=== PATIENT | female | born 1945 | race Caucasian/White ===

== ENCOUNTER 2017-04-28 05:27 | Inpatient (IN) | payer MEDICARE ==
[2017-04-28] VITALS (8 sets, daily range): BP systolic 124–179; BP diastolic 48–81
[~2017-04-28] VITALS: Ht 167.6 cm; Wt 131.8 kg
--- NOTE | ~2017-04-28 | O ---
[place], [place] OPERATIVE NOTE [id number] UN[facility] #: [id number] ROOM: 404 DOCTOR: DESIREE MENDOZA MDCOTTON PLANTDEVORA BIRTHDATE: [birth year] DOS: HISTORY: The patient is a 71-year-old patient was presented to Emergency Room with chief complaint of subxiphoid pain, difficulty with swallowing, suspected to be esophageal foreign body. I was called early in the morning from the Emergency Room with this concern and the patient was admitted for evaluation endoscopically. PAST MEDICAL HISTORY: Previous esophageal foreign body, asthma, morbid obesity, GERD, hypertension. PAST SURGICAL HISTORY: Bilateral total knee prosthesis, hysterectomy, tubal ligation, tonsillectomy. SOCIAL HISTORY: Nonsmoker, nonalcohol consumer. FAMILY HISTORY: Noncontributory. ALLERGIES: MULTIPLE MEDICATIONS INCLUDING IVP DYE, SULFA, ALENDRONATE, SODIUM, NISOLDIPINE. FOOD ALLERGIES TO LEMON, FISH, DAIRY PRODUCTS. MEDICATIONS: List has been reviewed. She has been on Zegerid apparently at home, . PROCEDURE: Today's procedure part of investigation is panendoscopy plus biopsy. PREMEDICATION: Versed and Diprivan. SCOPE: Olympus forward-viewing gastroscope Q10 video. REPORT: After putting the patient in the left lateral position and after application of lubricant to the scope, the scope was introduced. Thereafter, under direct visualization, I advanced through the length of esophagus without difficulty. Esophagus in general is tortuous and at the distal esophagus, inflammatory response was noticed, wondering if this was secondary to pressure that was introduced with foreign body that used to be here; therefore, distal esophagitis noticed lower esophageal sphincter, biopsied with concerns for such. A small hiatal hernia was noticed. Gastric pouch was entered. Multiple antral erosions were seen, photographed, biopsied. Duodenal bulb, second and third part within normal limit. The patient extubated, tolerated procedure well. IMPRESSION: Mildly tortuous esophagus, distal esophagitis, status post biopsy, hiatal hernia, gastritis, gastric erosions. PLAN AND DISCUSSION: We are going to switch her from Zegerid to omeprazole 40 mg daily. Soft diet was advised. After a trial of therapy, the patient is going to be returned for future esophageal dilation understanding after healing of the distal esophagitis and clinical reassessment. The patient can be discharged today. [place], [place] OPERATIVE NOTE NAME: LIZET ABARCA UNIT #: [id number] ROOM: 404 DOCTOR: REJI PALENCIA,JC BIRTHDATE: [birth year] JC MENDOZA MD CM:OPRECORD:OPERATIVE NOTE [id number] JC MEDNOZA MD 04/28/17 1332 interface
[~2017-04-28 05:27] MED LIST: ADVAIR 250/501 EA INH; ALBUTEROL2.5 MG/0.5 INH; B12,B-12,B 12500 MC1 PO; BREO ELLIPTA 11 EACH IH; DEMADEX10 M1 PO; DICLOFENAC SOD75 MG PO; DIOVAN HCT 25 M1 TA5 PO; DUONEB 3 MG/3 ML3 M1 INH; NEXIUM 24HR20 M1 PO; NEXIUM20 M1 PO; OSTERA TABLET1 EACH PO; PREDNISONE10 MG PO; TYLENOL EXTRA500 MG PO; VIBRAMYCIN100 MG PO; VITAMIN D5000 I3 PO; XANAX0.5 MG PO
[2017-04-28 06:18] LABS: BASO % 0.2 % (0.0-1.0); EOS # 0.4 10*3/uL (0.0-0.4); EOS % 4.2 % (1.0-4.0); HEMATOCRIT 33.7 % (37.0-47.0); HEMOGLOBIN 10.1 g/dl (12.0-16.0); LYMPH # 1.6 10*3/uL (1.3-4.4); LYMPH % 15.8 % (27.0-41.0); MEAN CELL VOLUME 81.4 fl (81.0-99.0); MEAN CORPUSCULAR HGB 24.4 pg (27.0-31.0); MEAN PLATELET VOLUME 9.2 fl (9.6-12.3); MONO # 0.5 10*3/uL (0.1-1.0); MONO % 5.4 % (3.0-9.0); NEUT # 7.4 10*3/uL (2.3-7.9); PLATELET COUNT AUTOMATED 357 10*3/uL (130-400); RED BLOOD COUNT 4.14 10*6/uL (4.10-5.10); RED CELL DISTRI WIDTH 17.1 % (0-14.5)
[2017-04-28 06:34] LABS: ALBUMIN 3.6 gm/dl (3.1-4.5); ALKALINE PHOSPHATASE 128 U/L (45-117); BUN 19 mg/dl (7-24); CHLORIDE 104 mmol/L (98-107); CREATININE 0.83 mg/dL (0.55-1.02); SGOT/AST 18 IU/L (3-35); SGPT/ALT 23 U/L (12-78); SODIUM 139 mmol/L (136-145); TOTAL PROTEIN 7.8 gm/dL (6.4-8.2)
[2017-04-28 06:36] LABS: ACT PARTIAL THROMBO TIME 23.5 SECONDS (20.8-31.5)
[2017-04-28 06:39] LABS: TROPONIN I < 0.015 ng/ml (<0.045)
--- NOTE | 2017-04-28 07:27 | NUR ---
PT STATES SHE FEELS "KIND OF OUT OF IT." SHE STILL FEELS LIKE SHE STILL HAS SOMETHING STUCK IN HER THROAT AND SHE STATES THAT THE PRESSURE IS BETWEEN HER BREASTS.
--- NOTE | 2017-04-28 08:25 | NUR ---
A 71, admitted to 4E, under the services of MITCH Khan DO with a diagnosis of FOOD OBSTRUCTION. Chief complaint is SOMETHING CAUGHT IN THROAT. Patient arrived via stretcher from ER. Monitor applied. Initial assessment completed. Vital signs taken and recorded. MITCH KHAN DO notified of admission to the unit. Orders received. See assessment for past medical history, medications and allergies. Patient and/or family oriented to unit. [facility] visitation policy reviewed. Clothing/patient valuable form completed. LIZET HOFFMAN
[2017-04-28] MEDS ORDERED: ZEGERID OTC 201 EACH PO (08:54)
[2017-04-28] MEDS ORDERED: BUMETANIDE2 MG PO (08:55)
--- NOTE | 2017-04-28 10:51 | NUR ---
[facility] CALLED AND MEDS VERIFIED. THEY DID NOT HAVE RECORD FOR BREO WHICH PT STATES DR CONLEY GIVES HER SAMPLES OR VITAMIN B12 WHICH PT STATES SHE BUYS OVER THE COUNTER.
--- NOTE | 2017-04-28 11:30 | NUR ---
TO OR VIA BED.
--- NOTE | 2017-04-28 13:20 | NUR ---
RETURNED FROM OR. CONDITION STABLE.
--- NOTE | 2017-04-28 14:26 | NUR ---
MEDICATED PO TYLENOL FOR C/O HEADACHE. PT SWALLOWED WITHOUT DIFFICULTY.
[2017-04-28] MEDS ORDERED: PROTONIX40 MG PO (17:21)
--- NOTE | 2017-04-28 18:00 | NUR ---
Discharge instructions reviewed with patient/family. Patient receptive and verbalizes understanding. Follow-up care arranged. Written instructions given to patient/family. HEPLOCK REMOVED. PRESCRIPTION GIVEN. PATIENT AMBULATORY OFF FLOOR WITH DAUGHTER. BRENDEN ROSENBERG
== END 2017-04-28 18:00 | disposition home or self-care (01) | DRG 394 ==
LOC: ED 05:27 → EDHOLD 06:55 → 4E 06:55
PROVIDERS: Emergency Medicine Emergency Medical Services; ADMIT Internal Medicine
PROC: 0DB38ZX Excision of Lower Esophagus, Via Natural or Artificial Opening Endoscopic, Diagnostic (ICD-10-PCS; principal; 2017-04-28)
PROC: 0DC58ZZ Extirpation of Matter from Esophagus, Via Natural or Artificial Opening Endoscopic (ICD-10-PCS; principal; 2017-04-28)
PROC: 0DB78ZX Excision of Stomach, Pylorus, Via Natural or Artificial Opening Endoscopic, Diagnostic (ICD-10-PCS; principal; 2017-04-28)
DX: T18.128A Food in esophagus causing other injury, initial encounter (principal); Z68.42 Body mass index [BMI] 45.0-49.9, adult; J44.9 Chronic obstructive pulmonary disease, unspecified; E66.01 Morbid (severe) obesity due to excess calories; D64.9 Anemia, unspecified; K22.2 Esophageal obstruction; K44.9 Diaphragmatic hernia without obstruction or gangrene; K29.70 Gastritis, unspecified, without bleeding; R73.9 Hyperglycemia, unspecified; R74.8 Abnormal levels of other serum enzymes; K21.0 Gastro-esophageal reflux disease with esophagitis; K25.9 Gastric ulcer, unspecified as acute or chronic, without hemorrhage or perforation; I10 Essential (primary) hypertension; Z96.653 Presence of artificial knee joint, bilateral; Z90.710 Acquired absence of both cervix and uterus; Z80.1 Family history of malignant neoplasm of trachea, bronchus and lung; Z88.2 Allergy status to sulfonamides; Z91.041 Radiographic dye allergy status; Z91.011 Allergy to milk products; Z91.018 Allergy to other foods; Z91.013 Allergy to seafood; Z79.899 Other long term (current) drug therapy; Z82.3 Family history of stroke; Z98.51 Tubal ligation status; X58.XXXA Exposure to other specified factors, initial encounter; Y93.89 Activity, other specified; Y92.098 Other place in other non-institutional residence as the place of occurrence of the external cause; Y99.8 Other external cause status

== ENCOUNTER → 2017-05-12 | Outpatient (CLI) | payer MEDICARE ==
[~2017-05-12] MED LIST changes: +BUMETANIDE2 MG PO; +PROTONIX40 MG PO; +ZEGERID OTC 201 EACH PO
[2017-05-12 10:24] LABS: ALBUMIN 3.4 gm/dl (3.1-4.5); ALKALINE PHOSPHATASE 120 U/L (45-117); BUN 10 mg/dl (7-24); CHLORIDE 105 mmol/L (98-107); CHOLESTEROL 208 mg/dL (<200); CREATININE 0.77 mg/dL (0.55-1.02); FREE T4 0.92 ng/dl (0.76-1.46); HDL CHOLESTEROL 53 mg/dl (40-60); LDL CHOLESTEROL 130 mg/dL (9-159); POTASSIUM 4.2 mmol/L (3.5-5.1); SGOT/AST 14 IU/L (3-35); SGPT/ALT 18 U/L (12-78); SODIUM 140 mmol/L (136-145); TOTAL PROTEIN 7.6 gm/dL (6.4-8.2); TRIGLYCERIDES 123 mg/dl (<150); VLDL CHOLESTEROL 25 mg/dL (6-40)
[2017-05-12 10:29] LABS: BILIRUBIN, DIRECT < 0.1 mg/dL (0.0-0.2); THYROID STIM HORMONE (HS) 0.294 uIU/ml (0.358-4.75)
== END | disposition home or self-care (01) ==
LOC: LAB 09:18 → MAMMO 09:30
PROVIDERS: Internal Medicine
DX: I10 Essential (primary) hypertension (principal); R00.2 Palpitations; E78.4 Other hyperlipidemia; G47.62 Sleep related leg cramps; R63.5 Abnormal weight gain; L65.9 Nonscarring hair loss, unspecified; L98.8 Other specified disorders of the skin and subcutaneous tissue; E55.9 Vitamin D deficiency, unspecified; R73.02 Impaired glucose tolerance (oral)

== ENCOUNTER → 2017-05-19 | Outpatient (CLI) | payer MEDICARE | END | disposition home or self-care (01) | LOC: MAMMO 05-12 09:30 | DX: Z12.31 Encounter for screening mammogram for malignant neoplasm of breast (principal) ==

== ENCOUNTER → 2017-06-30 | Day surgery (SDC) | payer MEDICARE ==
[~2017-06-30] VITALS: Ht 167.6 cm; Wt 122.5 kg
[~2017-06-30] MED LIST changes: +KLOR-CON SPRIN10 MEQ PO; +SINGULAIR10 M1 PO; +ZANAFLEX4 MG PO; +trelegy INH
--- NOTE | ~2017-06-30 | O ---
[place], [place] OPERATIVE NOTE NAME: LIZET ABARCA UNIT #: [id number] ROOM: DOCTOR: JC MENDOZA MD BIRTHDATE: [birth year] DOS: 06/30/2017 GASTROENDOSCOPIC REPORT INDICATION: The patient is a 71-year-old patient who was presented with chief complaint of dysphagia, history of presentation to the Emergency Room and esophageal foreign body and extraction and follow up on dysphagia. ALLERGIES: IVP DYE. PAST MEDICAL HISTORY: Associated with anxiety, dyspepsia, hypertension, COPD, obesity. PAST SURGICAL HISTORY: Bilateral knee, bilateral hip, exploratory laparotomy, hysterectomy, and tonsillectomy. SOCIAL HISTORY: Nonsmoker, nonalcohol consumer. FAMILY HISTORY: Noncontributory. PROCEDURE: Today's procedure part of investigation is panendoscopy plus esophageal dilation. PREMEDICATION: Versed and Diprivan. SCOPE: Olympus forward-viewing gastroscope Q10 video. REPORT: After putting the patient in left lateral position and application of lubricant to the scope, the scope was introduced. Thereafter, under direct visualization, advanced through the length of esophagus without difficulty. Distal esophageal stricture, which is benign was identified. Initially dilated to size 15, subsequently to 18 and finally to size 20. A 3.5 cm hiatal hernia was identified. Gastric pouch was entered. Gastritis noticed. Duodenal bulb, second and third part within normal limits. The patient was gradually extubated and tolerated the procedure well. IMPRESSION: Hiatal hernia, distal esophageal stricture, status post balloon dilation to size 20, gastritis. PLAN AND DISCUSSION: Continuation of Protonix 40 mg daily. Elevation of the head of the bed 6 inch all time. Gaviscon as antacid of choice. Follow up routinely with family attending physician, p.r.n. visit with us in GI Clinic. Thank you very much indeed for your kind referral. [place], [place] OPERATIVE NOTE NAME: ABARCA,LIZET UNIT #: [id number] ROOM: DOCTOR: JC MENDOZA MD BIRTHDATE: [birth year] JC MENDOZA MD CM:OPRECORD:OPERATIVE NOTE [phone] JC MENDOZA MD 06/30/17 1010 interface
--- NOTE | ~2017-06-30 | O ---
[place], [place] OPERATIVE NOTE NAME: LIZET ABARCA UNIT #: [id number] ROOM: DOCTOR: JC MENDOZA MD BIRTHDATE: [birth year] DOS: 06/30/2017 INDICATIONS: A [id number]-xeo patient who was presented with chief complaint of esophageal foreign body. History of presentation to Emergency Room with foreign body extraction. Here, the patient has been on Protonix 40 mg. DICTATION ENDS HERE. JC MENDOZA MD CM:OPRECORD:OPERATIVE NOTE [phone] JC MENDOZA MD 06/30/17 1203 interface
[2017-06-30 08:14] VITALS: BP 110/76
[2017-06-30 08:50] VITALS: BP 131/77
[2017-06-30 09:05] VITALS: BP 133/79
[2017-06-30 09:25] VITALS: BP 133/79
== END | disposition home or self-care (01) ==
LOC: SDC 06-25 08:45
DX: K22.2 Esophageal obstruction (principal); K44.9 Diaphragmatic hernia without obstruction or gangrene; K29.70 Gastritis, unspecified, without bleeding; F41.9 Anxiety disorder, unspecified; I10 Essential (primary) hypertension; J44.9 Chronic obstructive pulmonary disease, unspecified; E66.9 Obesity, unspecified; Z90.710 Acquired absence of both cervix and uterus; Z98.890 Other specified postprocedural states; Z88.1 Allergy status to other antibiotic agents; E11.9 Type 2 diabetes mellitus without complications; K21.9 Gastro-esophageal reflux disease without esophagitis; Z98.51 Tubal ligation status; Z82.49 Family history of ischemic heart disease and other diseases of the circulatory system

== ENCOUNTER → 2018-01-06 | Outpatient (CLI) | payer MEDICARE ==
[2018-01-06 09:15] LABS: ALBUMIN 3.8 gm/dl (3.1-4.5); ALKALINE PHOSPHATASE 101 U/L (45-117); BUN 21 mg/dl (7-24); CHLORIDE 107 mmol/L (98-107); CHOLESTEROL 247 mg/dL (<200); CREATININE 0.85 mg/dL (0.55-1.02); HDL CHOLESTEROL 61 mg/dl (40-60); LDL CHOLESTEROL 170 mg/dL (9-159); POTASSIUM 4.1 mmol/L (3.5-5.1); SGOT/AST 9 IU/L (3-35); SGPT/ALT 22 U/L (12-78); SODIUM 143 mmol/L (136-145); TOTAL PROTEIN 7.7 gm/dL (6.4-8.2); TRIGLYCERIDES 82 mg/dl (<150); VLDL CHOLESTEROL 16 mg/dL (6-40)
[2018-01-06 09:28] LABS: BASO % 0.3 % (0.0-1.0); EOS # 0.1 10*3/uL (0.0-0.4); EOS % 0.7 % (1.0-4.0); HEMATOCRIT 34.4 % (37.0-47.0); LYMPH # 1.3 10*3/uL (1.3-4.4); LYMPH % 17.2 % (27.0-41.0); MEAN CELL VOLUME 86.4 fl (81.0-99.0); MEAN CORPUSCULAR HGB 25.1 pg (27.0-31.0); MEAN CORPUSCULAR HGB CONC 29.1 g/dl (33.0-37.0); MEAN PLATELET VOLUME 9.3 fl (9.6-12.3); MONO # 0.5 10*3/uL (0.1-1.0); MONO % 6.8 % (3.0-9.0); NEUT # 5.5 10*3/uL (2.3-7.9); NEUT % 74.3 % (47.0-73.0); PLATELET COUNT AUTOMATED 332 10*3/uL (130-400); RED BLOOD COUNT 3.98 10*6/uL (4.10-5.10); RED CELL DISTRI WIDTH 17.8 % (0-14.5); WHITE BLOOD COUNT 7.4 10*3/uL (4.8-10.8)
== END | disposition home or self-care (01) ==
LOC: LAB 08:16
PROVIDERS: Internal Medicine
DX: E78.2 Mixed hyperlipidemia (principal); E55.9 Vitamin D deficiency, unspecified

== ENCOUNTER 2019-06-16 10:00 | Inpatient (IN) | payer MEDICARE ==
[~2019-06-16] VITALS: Ht 167.6 cm; Wt 124.7 kg
[2019-06-16 10:01] VITALS: BP 164/75
[2019-06-16 10:31] LABS: BASO % 0.5 % (0.0-1.0); EOS % 0.7 % (1.0-4.0); HEMATOCRIT 34.4 % (37.0-47.0); HEMOGLOBIN 10.6 g/dl (12.0-16.0); LYMPH # 0.8 10*3/uL (1.3-4.4); LYMPH % 20.8 % (27.0-41.0); MEAN CELL VOLUME 91.7 fl (81.0-99.0); MEAN CORPUSCULAR HGB 28.3 pg (27.0-31.0); MEAN CORPUSCULAR HGB CONC 30.8 g/dl (33.0-37.0); MEAN PLATELET VOLUME 9.3 fl (9.6-12.3); MONO # 0.7 10*3/uL (0.1-1.0); MONO % 17.9 % (3.0-9.0); NEUT # 2.4 10*3/uL (2.3-7.9); NEUT % 59.9 % (47.0-73.0); PLATELET COUNT AUTOMATED 242 10*3/uL (130-400); RED BLOOD COUNT 3.75 10*6/uL (4.10-5.10); RED CELL DISTRI WIDTH 14.3 % (0-14.5)
[2019-06-16 10:43] LABS: ACT PARTIAL THROMBO TIME 28.5 SECONDS (20.0-32.1)
[2019-06-16 10:48] LABS: ALBUMIN 3.4 gm/dl (3.1-4.5); ALKALINE PHOSPHATASE 103 U/L (45-117); BUN 15 mg/dl (7-24); CHLORIDE 105 mmol/L (98-107); CREATININE 0.89 mg/dL (0.55-1.02); POTASSIUM 3.7 mmol/L (3.5-5.1); SGOT/AST 23 IU/L (3-35); SGPT/ALT 22 U/L (12-78); SODIUM 138 mmol/L (136-145); TOTAL PROTEIN 7.5 gm/dL (6.4-8.2)
[2019-06-16 10:49] LABS: TROPONIN I < 0.015 ng/ml (<0.045)
[2019-06-16] MEDS ORDERED: PAXIL20 M1 PO (12:03)
[2019-06-16] MEDS ORDERED: CYMBALTA30 MG PO (12:04)
[2019-06-16] MEDS ORDERED: ZESTRIL10 MG PO (12:06)
[2019-06-16] MEDS ORDERED: VENT7GM INH (12:06)
[2019-06-16 12:25] VITALS: BP 125/69
--- NOTE | 2019-06-16 12:25 | NUR ---
A 73, admitted to , under the services of KARLI Nixon MD with a diagnosis of REPIRATORY FAILURE, HYPOXIA, SEPSIS. Chief complaint is SOB. Patient arrived via bed from ER. Monitor applied. Initial assessment completed. Vital signs taken and recorded. DR. INDIA PALENCIA,KARLI notified of admission to the unit. Orders received. See assessment for past medical history, medications and allergies. Patient and/or family oriented to unit. [facility] visitation policy reviewed. Clothing/patient valuable form completed. HUNG INGRAM
--- NOTE | 2019-06-16 13:23 | NUR ---
ZOFRAN GIVEN PER ORDER FOR COMPLAINT OF NAUSEA. WILL MONITOR EFFECTIVENESS.
--- NOTE | 2019-06-16 14:43 | NUR ---
DR. STOLL NOTIFED OF COMPLETE/UPDATED MED REC
--- NOTE | 2019-06-16 14:54 | NUR ---
PT UNSURE OF DNR STATUS, PT DAUGHTER WILL BRING IT IN LATER TODAY
--- NOTE | 2019-06-16 14:55 | NUR ---
PER PT, ZOFRAN "HELPED MY NAUSEA"
--- NOTE | 2019-06-16 15:01 | NUR ---
DR. NEELY NOTIFED OF CONSULT
[2019-06-16 15:16] LABS: BILIRUBIN NEGATIVE (NEGATIVE); BLOOD NEGATIVE (NEGATIVE); CLARITY CLOUDY (CLEAR); COLOR YELLOW (YELLOW); GLUCOSE NEGATIVE (NEGATIVE); KETONE NEGATIVE (NEGATIVE); LEUKO ESTERASE NEGATIVE (NEGATIVE); NITRITE NEGATIVE (NEGATIVE); SPECIFIC GRAVITY >= 1.030 (1.005-1.030); UROBILINOGEN 0.2 E.U./dl (0.2-1.0)
[2019-06-16 15:25] LABS: BACTERIA 3+
[2019-06-16 15:59] VITALS: BP 130/53
--- NOTE | 2019-06-16 16:02 | NUR ---
PATIENT INSTRUCTED ON THE FLUTTER VALVE
[2019-06-16 20:00] VITALS: BP 138/68
--- NOTE | 2019-06-16 20:08 | NUR ---
24 HR CHART CHECK COMPLETE.
[2019-06-17] VITALS: BP 135/68
[2019-06-17 06:47] LABS: HEMATOCRIT 38.6 % (37.0-47.0); HEMOGLOBIN 11.3 g/dl (12.0-16.0); LYMPH # 0.5 10*3/uL (1.3-4.4); MEAN CELL VOLUME 92.8 fl (81.0-99.0); MEAN CORPUSCULAR HGB 27.2 pg (27.0-31.0); MEAN CORPUSCULAR HGB CONC 29.3 g/dl (33.0-37.0); MEAN PLATELET VOLUME 9.6 fl (9.6-12.3); MONO # 0.3 10*3/uL (0.1-1.0); MONO % 9.2 % (3.0-9.0); NEUT % 71.4 % (47.0-73.0); PLATELET COUNT AUTOMATED 287 10*3/uL (130-400); RED BLOOD COUNT 4.16 10*6/uL (4.10-5.10); WHITE BLOOD COUNT 2.8 10*3/uL (4.8-10.8)
[2019-06-17 07:15] LABS: ALBUMIN 3.3 gm/dl (3.1-4.5); ALKALINE PHOSPHATASE 106 U/L (45-117); BUN 15 mg/dl (7-24); CHLORIDE 107 mmol/L (98-107); CHOLESTEROL 222 mg/dL (<200); CREATININE 0.87 mg/dL (0.55-1.02); FREE T4 0.83 ng/dl (0.76-1.46); HDL CHOLESTEROL 64 mg/dl (40-60); LDL CHOLESTEROL 143 mg/dL (9-159); PHOSPHOROUS 4.2 mg/dL (2.5-4.9); POTASSIUM 4.4 mmol/L (3.5-5.1); SGOT/AST 22 IU/L (3-35); SGPT/ALT 24 U/L (12-78); SODIUM 140 mmol/L (136-145); TOTAL PROTEIN 7.8 gm/dL (6.4-8.2); TRIGLYCERIDES 74 mg/dl (<150); VLDL CHOLESTEROL 15 mg/dL (6-40)
[2019-06-17 07:19] LABS: THYROID STIM HORMONE (HS) 0.111 uIU/ml (0.358-4.75)
[2019-06-17 07:27] LABS: ACT PARTIAL THROMBO TIME 27.2 SECONDS (20.0-32.1); INTERNATIONAL NORM RATIO 0.9 (2.0-3.5)
[2019-06-17 07:41] LABS: VITAMIN D, 25-HYDROXY 33.9 ng/mL (30-100)
[2019-06-17 08:00] VITALS: BP 124/46
[2019-06-17 12:00] VITALS: BP 123/70
[2019-06-17 16:00] VITALS: BP 119/53
[2019-06-17 20:00] VITALS: BP 144/62
[2019-06-18] VITALS: BP 162/80
--- NOTE | 2019-06-18 06:15 | NUR ---
IV started right forearm with #22 protective cath after 1 attempts. Site prepped with Chloroprep. Sterile dressing applied. Patient tolerated procedure well. IV infusing at cc/hr. CAROLYN MAHAJAN
[2019-06-18 06:56] LABS: HEMATOCRIT 35.9 % (37.0-47.0); HEMOGLOBIN 10.7 g/dl (12.0-16.0); LYMPH # 0.6 10*3/uL (1.3-4.4); MEAN CELL VOLUME 92.8 fl (81.0-99.0); MEAN CORPUSCULAR HGB 27.6 pg (27.0-31.0); MEAN CORPUSCULAR HGB CONC 29.8 g/dl (33.0-37.0); MEAN PLATELET VOLUME 9.8 fl (9.6-12.3); MONO # 0.4 10*3/uL (0.1-1.0); MONO % 15.4 % (3.0-9.0); NEUT # 1.5 10*3/uL (2.3-7.9); PLATELET COUNT AUTOMATED 266 10*3/uL (130-400); RED BLOOD COUNT 3.87 10*6/uL (4.10-5.10); RED CELL DISTRI WIDTH 13.8 % (0-14.5); WHITE BLOOD COUNT 2.5 10*3/uL (4.8-10.8)
[2019-06-18 07:26] LABS: ALBUMIN 3.2 gm/dl (3.1-4.5); ALKALINE PHOSPHATASE 93 U/L (45-117); BUN 20 mg/dl (7-24); CHLORIDE 106 mmol/L (98-107); CREATININE 0.79 mg/dL (0.55-1.02); POTASSIUM 4.5 mmol/L (3.5-5.1); SGOT/AST 32 IU/L (3-35); SGPT/ALT 26 U/L (12-78); SODIUM 139 mmol/L (136-145); TOTAL PROTEIN 7.1 gm/dL (6.4-8.2)
[2019-06-18 08:00] VITALS: BP 154/86
[2019-06-18 12:00] VITALS: BP 131/67
[2019-06-18 16:00] VITALS: BP 146/71
[2019-06-18 20:00] VITALS: BP 148/69
--- NOTE | 2019-06-18 20:05 | NUR ---
PATIENT ASSESSMENT COMPLETED AT THIS TIME WITHOUT INCIDENT. PATIENT ALERT AND ORIENTED, DENIES ANY PAIN, CHEST PAIN OR SHORTNESS OF BREATH AT THIS TIME. IV INTACT AT THIS TIME. CALL LIGHT WITHIN REACH, WILL CONTINUE TO MONITOR.
[2019-06-19] VITALS (9 sets, daily range): BP systolic 133–170; BP diastolic 60–90
[2019-06-19 06:12] LABS: BASO % 0.3 % (0.0-1.0); HEMOGLOBIN 11.1 g/dl (12.0-16.0); LYMPH # 0.7 10*3/uL (1.3-4.4); LYMPH % 22.7 % (27.0-41.0); MEAN CELL VOLUME 91.8 fl (81.0-99.0); MEAN CORPUSCULAR HGB 28.3 pg (27.0-31.0); MEAN CORPUSCULAR HGB CONC 30.8 g/dl (33.0-37.0); MEAN PLATELET VOLUME 9.6 fl (9.6-12.3); MONO # 0.5 10*3/uL (0.1-1.0); MONO % 15.5 % (3.0-9.0); NEUT # 1.8 10*3/uL (2.3-7.9); NEUT % 60.8 % (47.0-73.0); PLATELET COUNT AUTOMATED 252 10*3/uL (130-400); RED BLOOD COUNT 3.92 10*6/uL (4.10-5.10); RED CELL DISTRI WIDTH 13.8 % (0-14.5); WHITE BLOOD COUNT 2.9 10*3/uL (4.8-10.8)
--- NOTE | 2019-06-19 07:40 | NUR ---
PATIENT AWAKE AND ORIENTED DURING MORNING ASSESSMENT, SITTING ON EDGE OF BED, NO COMPLAINTS AT THIS TIME. STATES SHE HAS BEEN NPO SINCE INSTRUCTED. WILL CONTINUE TO MONITOR. VIKI SERNA
--- NOTE | 2019-06-19 07:50 | NUR ---
Taken off floor to OR for bronchoscopy.
--- NOTE | 2019-06-19 09:00 | NUR ---
Keel Press Operator in to talk to patient. Patient states lives at home with alone. There are few steps in the home. Physician: kane owens Pharmacy: [facility] Home health services: none Patient's level of ADLs: INDEPENDENT Patient has working utilities: all working DME: jean-pierre maharaj Follow-up physician's appointment after d/c: will be made by hospitalist nurse director upon discharge Does patient want to access PORTAL?: no Discharge plan discussed with patient, she lives at home, states she gets around fine, she states she will return home when medically stable and denies any home needs, case management will follow. STUART CASILLAS
--- NOTE | 2019-06-19 10:50 | NUR ---
Pt returned to floor from having bronchoscopy.
--- NOTE | 2019-06-19 11:16 | NUR ---
PATIENT RETURNED FROM BRONCHOSCOPY, RESTING IN BED. VIKI PEREZ [facility]
--- NOTE | 2019-06-19 12:14 | NUR ---
PT UP AMBULATIONG AROUND ROOM. NO COMPLAINT AT THIS TIME WILL CONTINUE TO MONITOR. VIKI PEREZ [facility]
--- NOTE | 2019-06-19 13:49 | NUR ---
PT RESTING IN BED, STATES SHE DOES NOT FEEL LIKE EATING AT THE MOMENT, MAY ORDER DINNER TONIGHT. VIKI PEREZ [facility]
--- NOTE | 2019-06-19 20:00 | NUR ---
IN TO ASSESS PATIENT. PATIENT LAYING IN BED SLEEPING BUT AROUSES EASILY. 3L NASAL CANNULA INTACT. I + E WHEEZES NOTED THROUGHOUT LUNG FRANKS. PATIENT STATES SHE'S NON DEPENDENT ON OXYGEN BUT IT NEEDED TO BE TURNED UP DUE TO HER COUGHING FITS AND SHE FELT LIKE SHE COULDNT BREATH. PATIENT NOTES THAT SHE HAS A PRODUCTIVE COUGH FOR WHITE SPUTUM. NORMOACTIVE BOWELS X4 QUADS. DENIES N/V/D/C. NO EDEMA NOTED. PATIENT HAS NO OTHER COMPLAINTS OTHER THAN HER COUGH AND A MILD SORE THROAT. CALL LIGHT WITHIN REACH, WILL MONITOR
--- NOTE | 2019-06-19 23:51 | NUR ---
24 HR chart check completed.
[2019-06-20] VITALS: BP 141/68
--- NOTE | 2019-06-20 01:07 | NUR ---
PATIENT SLEEPING. NO DISTRESS NOTED. CALL LIGHT WITHIN REACH, WILL MONITOR
[2019-06-20 06:56] LABS: BASO % 0.2 % (0.0-1.0); HEMATOCRIT 35.3 % (37.0-47.0); HEMOGLOBIN 10.6 g/dl (12.0-16.0); LYMPH # 0.7 10*3/uL (1.3-4.4); LYMPH % 10.4 % (27.0-41.0); MEAN CELL VOLUME 93.6 fl (81.0-99.0); MEAN CORPUSCULAR HGB 28.1 pg (27.0-31.0); MEAN PLATELET VOLUME 9.6 fl (9.6-12.3); MONO # 0.5 10*3/uL (0.1-1.0); MONO % 7.2 % (3.0-9.0); NEUT # 5.1 10*3/uL (2.3-7.9); NEUT % 81.4 % (47.0-73.0); PLATELET COUNT AUTOMATED 218 10*3/uL (130-400); RED BLOOD COUNT 3.77 10*6/uL (4.10-5.10); RED CELL DISTRI WIDTH 13.9 % (0-14.5); WHITE BLOOD COUNT 6.3 10*3/uL (4.8-10.8)
[2019-06-20 08:00] VITALS: BP 148/67
--- NOTE | 2019-06-20 09:00 | NUR ---
case management visits with patient, discussed with her a discharge plans including VNA, patient declined any services, she stated she would be returning to work when able, case management will follow
[2019-06-20 12:00] VITALS: BP 152/77
[2019-06-20 16:00] VITALS: BP 139/72
[2019-06-20 18:53] LABS: ACID FAST SPEC PROCESSING Concentration (.)
--- NOTE | 2019-06-20 19:25 | NUR ---
Patient resting quietly with no c/o discomfort. Respirations easy and regular. Vital signs stable. No overt distress. MARISOL MENDIETA
[2019-06-20 20:00] VITALS: BP 153/89
[2019-06-20 22:05] LABS: ADENOVIRUS Negative (Negative); INFLUENZA A Negative (Negative); INFLUENZA B Positive (Negative); METAPNEUMOVIRUS Negative (Negative); PARAINFLUENZA 1 Negative (Negative); PARAINFLUENZA 2 Negative (Negative); PARAINFLUENZA 3 Negative (Negative); RHINOVIRUS Negative (Negative); RSV A Negative (Negative); RSV B Negative (Negative)
--- NOTE | 2019-06-20 23:50 | NUR ---
SPOKE Enedina HERNANDEZ ABOUT PT COMPLAINING OF COUGH AND ELEVATED BP SAID HE WILL TAKE A LOOK AT IT
--- NOTE | 2019-06-20 23:58 | NUR ---
PT COMPLAINS OF COUGH PRN ROBITUSSIN GIVEN
[2019-06-21] VITALS: BP 156/94; BP 171/77
--- NOTE | 2019-06-21 01:47 | NUR ---
24 HR CHART CHECK COMPLETED CODE PAPERS ON CHART
[2019-06-21 06:21] LABS: HEMATOCRIT 37.3 % (37.0-47.0); MEAN CELL VOLUME 93.7 fl (81.0-99.0); MEAN CORPUSCULAR HGB 27.6 pg (27.0-31.0); MEAN CORPUSCULAR HGB CONC 29.5 g/dl (33.0-37.0); MEAN PLATELET VOLUME 9.8 fl (9.6-12.3); PLATELET COUNT AUTOMATED 250 10*3/uL (130-400); RED BLOOD COUNT 3.98 10*6/uL (4.10-5.10); RED CELL DISTRI WIDTH 13.7 % (0-14.5); WHITE BLOOD COUNT 5.9 10*3/uL (4.8-10.8)
[2019-06-21 06:36] LABS: CHLORIDE 105 mmol/L (98-107); POTASSIUM 3.9 mmol/L (3.5-5.1); SODIUM 142 mmol/L (136-145)
[2019-06-21 06:42] LABS: BUN 19 mg/dl (7-24); CREATININE 0.96 mg/dL (0.55-1.02)
[2019-06-21 07:24] LABS: TOTAL CELLS COUNTED 100 #CELLS
[2019-06-21 07:28] LABS: PLATELET SUFFICIENCY NORMAL (NORMAL)
[2019-06-21 08:00] VITALS: BP 170/85
--- NOTE | 2019-06-21 09:00 | NUR ---
case management visits with patient, she stated she would be discharged to home today, patient declines any home needs, stated she would be returning to home after the holidays
[2019-06-21] MEDS ORDERED: DOXYCYCLINE100 M3 PO (09:36)
[2019-06-21] MEDS ORDERED: PREDNISONE10 MG PO (09:36)
[2019-06-21 12:00] VITALS: BP 155/78
--- NOTE | 2019-06-21 13:16 | NUR ---
PULSE ON 2L AT REST 93, O2 REMOVED PT ON R/A, PULSE OX DECREASING TO 88%, HEART RATE 86. PT. PLACED ON 2L O2, SAT INCREASING TO 90%, PT. AMBULATED IN [place]LEY ON 2L O2, HEART RATE INCREASING TO 120 TO 132. I HAD PT. REST DURING AMBULATION, PT STATED SHE WAS GOOD AND COULD CONTINUE WALK. PT CONTINUED WALK WITH 2L O2, SAT 89 TO 90% ON 2L. PT. RETURNED TO ROOM, RECOVERY PULSE OX WAS 94 ON 2L, AND HEART RATE DECREASED TO 92. B/P PRE 155/78 AND POST 169/91. DR JOYA NOTIFIED ON RESULTS AND ORDER RECEIVED FOR O2 AT HOME., I WILL CALL [facility] FOR SERVICE.
[2019-06-21 16:00] VITALS: BP 155/78
--- NOTE | 2019-06-21 18:55 | NUR ---
Discharge instructions reviewed with patient/family. Patient receptive and verbalizes understanding. Follow-up care arranged. Written instructions given to patient/family. Patient was wheeled from unit by staff member and with family members. All personal items were accounted for. Patient's discharge was delayed to inclimate weather conditions that delayed oxygen delivery. Patient and family were educated on new medications and follow up visits. MANI BOOKER
== END 2019-06-21 19:40 | disposition home or self-care (01) | DRG 871 ==
LOC: ED 10:00 → EDHOLD 11:31 → 4E 11:31
PROVIDERS: Emergency Medicine; Family Medicine; Internal Medicine; Internal Medicine Critical Care Medicine; ADMIT Emergency Medicine
PROC: 0B928ZZ Drainage of Carina, Via Natural or Artificial Opening Endoscopic (ICD-10-PCS; principal; 2019-06-19)
DX: A41.9 Sepsis, unspecified organism (principal); J18.9 Pneumonia, unspecified organism; J96.01 Acute respiratory failure with hypoxia; J45.901 Unspecified asthma with (acute) exacerbation; Z68.41 Body mass index [BMI] 40.0-44.9, adult; J44.0 Chronic obstructive pulmonary disease with (acute) lower respiratory infection; J20.8 Acute bronchitis due to other specified organisms; R65.20 Severe sepsis without septic shock; E66.01 Morbid (severe) obesity due to excess calories; I10 Essential (primary) hypertension; Z96.653 Presence of artificial knee joint, bilateral; K21.9 Gastro-esophageal reflux disease without esophagitis; D64.9 Anemia, unspecified; E83.41 Hypermagnesemia; D72.819 Decreased white blood cell count, unspecified; M19.90 Unspecified osteoarthritis, unspecified site; Z66 Do not resuscitate; T17.990A Other foreign object in respiratory tract, part unspecified in causing asphyxiation, initial encounter; E11.65 Type 2 diabetes mellitus with hyperglycemia; T38.0X5A Adverse effect of glucocorticoids and synthetic analogues, initial encounter; B37.9 Candidiasis, unspecified; B96.89 Other specified bacterial agents as the cause of diseases classified elsewhere; I25.10 Atherosclerotic heart disease of native coronary artery without angina pectoris; Z90.710 Acquired absence of both cervix and uterus; Z98.51 Tubal ligation status; Z82.3 Family history of stroke; Z80.1 Family history of malignant neoplasm of trachea, bronchus and lung; Z79.899 Other long term (current) drug therapy; Z88.1 Allergy status to other antibiotic agents; Z88.8 Allergy status to other drugs, medicaments and biological substances; Y92.89 Other specified places as the place of occurrence of the external cause; Z91.013 Allergy to seafood; Z91.018 Allergy to other foods; X58.XXXA Exposure to other specified factors, initial encounter; Y93.89 Activity, other specified; Y99.8 Other external cause status

== ENCOUNTER → 2021-01-08 | Outpatient (CLI) | payer MEDICARE ==
[~2021-01-08] MED LIST changes: +CYMBALTA30 MG PO; +DOXYCYCLINE100 M3 PO; +PAXIL20 M1 PO; +VENT7GM INH; +ZESTRIL10 MG PO
== END | disposition home or self-care (01) ==
LOC: US 01-01 14:00
PROVIDERS: ATTEND Nurse Practitioner Primary Care
DX: E04.2 Nontoxic multinodular goiter (principal); R79.89 Other specified abnormal findings of blood chemistry

== ENCOUNTER → 2021-02-03 | Outpatient (CLI) | payer MEDICARE | END | disposition home or self-care (01) | LOC: RAD 12-31 13:30 → US 01-01 14:00 → RAD 01-22 09:00 | PROVIDERS: ATTEND Nurse Practitioner Primary Care | DX: Z78.0 Asymptomatic menopausal state (principal) ==

== ENCOUNTER → 2021-08-27 | Outpatient (CLI) | payer MEDICARE | END | disposition home or self-care (01) | LOC: NM 06:50 | PROVIDERS: ATTEND Internal Medicine Endocrinology, Diabetes & Metabolism | DX: E04.2 Nontoxic multinodular goiter (principal) ==

== ENCOUNTER → 2021-11-12 | Outpatient (CLI) | payer MEDICARE ==
[2021-11-12 10:00] LABS: FREE T4 0.88 ng/dl (0.76-1.46); THYROID STIM HORMONE (HS) 0.368 uIU/ml (0.358-4.75)
== END | disposition home or self-care (01) ==
LOC: LAB 08:41
PROVIDERS: ATTEND Internal Medicine Endocrinology, Diabetes & Metabolism
DX: E05.90 Thyrotoxicosis, unspecified without thyrotoxic crisis or storm (principal)

== ENCOUNTER → 2022-01-14 | Outpatient (CLI) | payer MEDICARE ==
[2022-01-14 09:49] LABS: FREE T4 0.76 ng/dl (0.76-1.46)
[2022-01-14 09:54] LABS: THYROID STIM HORMONE (HS) 2.88 uIU/ml (0.358-4.75)
== END ==
LOC: LAB 09:18
PROVIDERS: ATTEND Internal Medicine Endocrinology, Diabetes & Metabolism
DX: E05.90 Thyrotoxicosis, unspecified without thyrotoxic crisis or storm (principal)

== ENCOUNTER → 2022-07-16 | Outpatient (CLI) | payer MEDICARE ==
[2022-07-16 11:16] LABS: FREE T4 0.72 ng/dl (0.89-1.76); THYROID STIM HORMONE (HS) 11.439 uIU/ml (0.550-4.780)
== END | disposition home or self-care (01) ==
LOC: LAB 10:23
PROVIDERS: ATTEND Internal Medicine Endocrinology, Diabetes & Metabolism
DX: E05.90 Thyrotoxicosis, unspecified without thyrotoxic crisis or storm (principal)

== ENCOUNTER → 2022-09-16 | Outpatient (CLI) | payer MEDICARE ==
[2022-09-16 13:13] LABS: FREE T4 0.9 ng/dl (0.89-1.76); THYROID STIM HORMONE (HS) 8.674 uIU/ml (0.550-4.780)
== END | disposition home or self-care (01) ==
LOC: LAB 12:26
PROVIDERS: ATTEND Internal Medicine Endocrinology, Diabetes & Metabolism
DX: E89.0 Postprocedural hypothyroidism (principal)

== ENCOUNTER → 2022-11-04 | Outpatient (CLI) | payer MEDICARE ==
[2022-11-04 09:35] LABS: FREE T4 0.9 ng/dl (0.89-1.76); THYROID STIM HORMONE (HS) 7.034 uIU/ml (0.550-4.780)
== END | disposition home or self-care (01) ==
LOC: LAB 08:51
PROVIDERS: ATTEND Internal Medicine Endocrinology, Diabetes & Metabolism
DX: E89.0 Postprocedural hypothyroidism (principal)

== ENCOUNTER → 2023-04-07 | Outpatient (CLI) | payer MEDICARE | END | disposition home or self-care (01) | LOC: RESCLI 02:22 | PROVIDERS: ATTEND Internal Medicine | DX: I10 Essential (primary) hypertension (principal); J44.9 Chronic obstructive pulmonary disease, unspecified; K21.9 Gastro-esophageal reflux disease without esophagitis; F39 Unspecified mood [affective] disorder; F41.9 Anxiety disorder, unspecified; E78.5 Hyperlipidemia, unspecified; E11.9 Type 2 diabetes mellitus without complications; R51.9 Headache, unspecified; E03.9 Hypothyroidism, unspecified; Z88.8 Allergy status to other drugs, medicaments and biological substances; Z88.2 Allergy status to sulfonamides; Z90.710 Acquired absence of both cervix and uterus; Z98.890 Other specified postprocedural states; Z79.899 Other long term (current) drug therapy ==